=== PATIENT | male | born 1955 | race Caucasian/White ===

== ENCOUNTER 2019-05-03 08:55 | Day surgery (SDC) | payer BC ==
[~2019-05-03] VITALS: Ht 190.5 cm; Wt 105.9 kg
[2019-05-03] MEDS ORDERED: SODIUM CHLORIDE 0.9% 1,000 ML IV SCH ×2 (09:28→13:29)
[2019-05-03] MEDS ORDERED: DIPHENHYDRAMINE 50 MG/ML, 1ML IVPush ONE (09:30)
[2019-05-03] MEDS ORDERED: AMLO-150 PO (09:41)
[2019-05-03] MEDS ORDERED: LOSA25TA25 PO (09:41)
[2019-05-03] MEDS ORDERED: HYDR12.517 PO (09:41)
[2019-05-03] MEDS ORDERED: ASPI-496 PO (09:41)
[2019-05-03] MEDS ORDERED: ATOR40TA78 PO (09:41)
[2019-05-03] MEDS ORDERED: DIPHENHYDRAMINE 50 MG/ML, 1ML ONE (10:40)
[2019-05-03] MEDS ORDERED: MIDAZOLAM 1 MG/ML, 2ML ONE ×2 (10:55→12:46)
[2019-05-03] MEDS ORDERED: FENTANYL PF 100 MCG/2ML ONE (10:55)
[2019-05-03] MEDS ORDERED: HEPARIN 1,000 UNITS/ML, 10ML ONE (10:56)
[2019-05-03] MEDS ORDERED: VERAPAMIL 2.5 MG/ML, 2ML ONE (10:56)
[2019-05-03] MEDS ORDERED: LIDOCAINE-MPF 1%, 5ML ONE (10:56)
[2019-05-03] MEDS ORDERED: NITROGLYCERIN 5 MG/ML, 10ML ONE (10:56)
== END 2019-05-03 16:04 | disposition home or self-care (01) ==
LOC: CACL 08:55
PROVIDERS: ATTEND Internal Medicine Cardiovascular Disease
DX: R06.02 Shortness of breath (principal); I27.20 Pulmonary hypertension, unspecified; I10 Essential (primary) hypertension; E78.2 Mixed hyperlipidemia
CPT/HCPCS: 93460; 99156; 99157; C1769; C1894; J1200; J1644; J2250; J3010; Q9967

== ENCOUNTER → 2020-04-12 | Outpatient (CLI) | payer BC ==
[~2020-04-12] MED LIST: AMLO-150 PO; ASPI-496 PO; ATOR40TA78 PO; HYDR12.517 PO; LOSA25TA25 PO
== END | disposition home or self-care (01) ==
LOC: CFH 15:58
PROVIDERS: ATTEND Internal Medicine Cardiovascular Disease
DX: I11.9 Hypertensive heart disease without heart failure (principal)
CPT/HCPCS: 93306

== ENCOUNTER 2020-11-11 13:05 | Outpatient (CLI) | payer BC | END 2020-11-11 23:59 | disposition home or self-care (01) | LOC: CFH 13:05 | PROVIDERS: ATTEND Internal Medicine Cardiovascular Disease | DX: I35.8 Other nonrheumatic aortic valve disorders (principal); I10 Essential (primary) hypertension | CPT/HCPCS: 93306 ==